=== PATIENT | male | born 1985 | race American Indian/Alaskan Native ===

== ENCOUNTER 2021-01-14 00:22 | Emergency (ER) | payer MEDICARE, MEDICAID ==
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
[2021-01-14 01:13] VITALS: BP 131/93
== END 2021-01-14 01:18 | disposition home or self-care (01) ==
LOC: ED 00:22
DX: S81.802D Unspecified open wound, left lower leg, subsequent encounter (principal); W34.09XD Accidental discharge from other specified firearms, subsequent encounter
CPT/HCPCS: 99282; 99283